=== PATIENT | female | born 1975 | race Caucasian/White ===

== ENCOUNTER 2016-12-15 19:13 | Emergency (ER) | payer MEDICAID ==
[~2016-12-15] VITALS: Ht 170.2 cm; Wt 71.2 kg
[2016-12-15 20:02] LABS: BASOPHIL % 0.9 % (0-2); CALCIUM 8.5 mg/dL (8.5-10.1); CARBON DIOXIDE 30.3 mmol/L (21-32); CHLORIDE SERUM 106 mmol/L (98-107); CREATININE SERUM 0.6 mg/dL (0.6-1.0); GFR1 > 60 mL/min; GLUCOSE SERUM 84 mg/dL (74-106); PLATELET COUNT 358 x10^3mcL (130-400); POTASSIUM SERUM 3.8 mmol/L (3.5-5.1); SODIUM SERUM 142 mmol/L (136-145)
[2016-12-15 20:03] LABS: RED CELL DISTRIBUTION WIDTH 17.3 % (11.5-14.5)
[2016-12-15 20:07] LABS: ALBUMIN 3.4 g/dL (3.4-5.0); ALKALINE PHOSPHATASE 46 U/L (46-116); ALT/SGPT 16 U/L (14-59); AST/SGOT 16 U/L (15-37); TOTAL PROTEIN, SERUM 6.7 g/dL (6.4-8.2)
[2016-12-15 20:15] LABS: AMPHETAMINE QUAL UR NONE DETECTED (NEG <=1000)
[2016-12-15 20:27] LABS: T4(THYROXINE) 7.2 ug/dL (4.7-13.3)
[2016-12-15 21:20] VITALS: BP 121/82
== END 2016-12-15 22:28 | disposition home or self-care (01) ==
LOC: ED 19:13
PROVIDERS: Emergency Medicine
DX: R51 Headache (principal); M25.511 Pain in right shoulder; R07.9 Chest pain, unspecified; D64.9 Anemia, unspecified
CPT/HCPCS: 83880; J1885; Q0092

== ENCOUNTER 2017-07-15 20:20 | Emergency (ER) | payer MEDICAID ==
[~2017-07-15] VITALS: Ht 167.6 cm; Wt 75.3 kg
[2017-07-15 21:04] VITALS: Ht 167.6 cm; Wt 75.3 kg
[2017-07-16 01:22] VITALS: BP 120/79
== END 2017-07-16 01:22 | disposition home or self-care (01) ==
LOC: ED 20:20
DX: L60.0 Ingrowing nail (principal); Z89.421 Acquired absence of other right toe(s); L08.9 Local infection of the skin and subcutaneous tissue, unspecified; J06.9 Acute upper respiratory infection, unspecified
CPT/HCPCS: J2001

== ENCOUNTER 2017-11-14 09:51 | Emergency (ER) | payer MEDICAID ==
[~2017-11-14] VITALS: Ht 170.2 cm; Wt 68.5 kg
[2017-11-14 10:01] VITALS: Ht 170.2 cm; Wt 68.5 kg
[2017-11-14 11:02] LABS: BASOPHIL % 0.1 % (0-2); PLATELET COUNT 273 x10^3mcL (130-400)
[2017-11-14 11:16] LABS: microscopic required? YES; urine erythrocyte 3+ (NEGATIVE)
[2017-11-14 11:17] LABS: RED CELL DISTRIBUTION WIDTH 14.6 % (11.5-14.5)
[2017-11-14 11:40] LABS: CALCIUM 8.5 mg/dL (8.5-10.1); CARBON DIOXIDE 26.7 mmol/L (21-32); CHLORIDE SERUM 101 mmol/L (98-107); CREATININE SERUM 0.6 mg/dL (0.6-1.0); GFR1 > 60 mL/min; GLUCOSE SERUM 89 mg/dL (74-106); POTASSIUM SERUM 3.5 mmol/L (3.5-5.1); SODIUM SERUM 133 mmol/L (136-145)
[2017-11-14 11:52] LABS: ALBUMIN 3.5 g/dL (3.4-5.0); ALKALINE PHOSPHATASE 58 U/L (46-116); ALT/SGPT 19 U/L (14-59); AST/SGOT 5 U/L (15-37); BILIRUBIN TOTAL 0.54 mg/dL (0.20-1.00); FREE T4 1.13 ng/dL (0.76-1.46); LIPASE 76 IU/L (73-393); TOTAL PROTEIN, SERUM 6.8 g/dL (6.4-8.2)
[2017-11-14 13:37] VITALS: BP 97/58
== END 2017-11-14 14:45 | disposition home or self-care (01) ==
LOC: ED 09:51
PROVIDERS: Emergency Medicine
DX: N12 Tubulo-interstitial nephritis, not specified as acute or chronic (principal); R51 Headache; R42 Dizziness and giddiness; R30.0 Dysuria; Z87.42 Personal history of other diseases of the female genital tract
CPT/HCPCS: 83880; 84439; G0480; J0696; J1885; J2270; J2765; J7030; J7050